=== PATIENT | female | born 1975 ===

== ENCOUNTER 2020-08-24 07:25 | Day surgery (SDC) | payer OTHER ==
[~2020-08-24 07:25] MED LIST: PULM IN; SYNTHROID50 MCG PO; VENTOL IH
[2020-08-24] MEDS ORDERED: ULTRACET PO (13:07)
== END 2020-08-24 16:30 | disposition home or self-care (01) ==
LOC: CIR.AMB 07:25
PROVIDERS: ATTEND Obstetrics & Gynecology Gynecology
DX: N83.02 Follicular cyst of left ovary (principal); N84.0 Polyp of corpus uteri; Z20.822 Contact with and (suspected) exposure to COVID-19